=== PATIENT | male | born 1935 | race Caucasian/White ===

== ENCOUNTER → 2017-07-30 | Outpatient (CLI) | payer MEDICARE, BC ==
--- NOTE | 2017-07-31 08:07 | US ---
EXAMINATION TYPE: US kidneys/renal and bladder DATE OF EXAM: 07/30/2017 COMPARISON: NONE CLINICAL HISTORY: R79.9 Abnormal labs. EXAM MEASUREMENTS: Right Kidney: 9.4 x 5.6 x 7.0 cm Left Kidney: 10.3 x 5.8 x 5.4 cm Right Kidney: 2 simple cysts: 3.7 x 4.0 x 3.9 cm upper pole and 2.4 x 1.8 x 2.1 cm lower pole Left Kidney: Complex cyst 2.9 x 2.7 x 2.7 cm at lower pole Bladder: distended Bilateral Jets seen: Yes Left kidney not well seen due to position and rib shadowing IMPRESSION: 1. Right simple appearing cysts. 2. Borders of the left renal cyst are not smooth this cannot be classified as a simple cyst. However, there is limitation on this examination. Follow-up is recommended.
== END | disposition home or self-care (01) ==
LOC: RADUSMAIN 15:42
PROVIDERS: ATTEND Family Medicine
DX: N28.1 Cyst of kidney, acquired (principal)
CPT/HCPCS: 76770

== ENCOUNTER → 2019-11-04 | Outpatient (CLI) | payer MEDICARE, BC ==
--- NOTE | 2019-11-04 17:23 | US ---
EXAMINATION TYPE: US kidneys/renal and bladder DATE OF EXAM: 11/04/2019 COMPARISON: US CLINICAL HISTORY: N28.1 JAVIER RENAL CYST. EXAM MEASUREMENTS: Right Kidney: 10.6 X 5.2 X 5.8 cm Left Kidney: 10.2 X 5.6 X 5.4 cm Technically difficult exam performed in wheelchair as patient states he was unable to ambulate to str etcher. Right Kidney: Multiple cysts noted, largest upper pole measures 4.0 x 4.1 x 4.6 cm. This has enlarged from comparison. Left Kidney: cyst laterally measures 2.0 x 1.9 x 2.8 cm . This is smaller than comparison and appe ars more simple than previously Bladder: unable to visualize There is no evidence for hydronephrosis at this point in time. No nephrolithiasis is seen. IMPRESSION: 1. Bilateral renal cysts
== END | disposition home or self-care (01) ==
LOC: RADUSWWP 13:34
PROVIDERS: ATTEND Internal Medicine Nephrology
DX: N28.1 Cyst of kidney, acquired (principal)
CPT/HCPCS: 76770